=== PATIENT | female | born 2000 | race Caucasian/White ===

== ENCOUNTER → 2019-11-07 15:49 | Outpatient (CLI) | payer OTHER, SELFPAY ==
[2019-11-07 11:28] VITALS: BMI 40.8
== END ==
PROVIDERS: Referring Provider Physician Assistant; Visit Provider Physician Assistant
DX: J02.9 Acute pharyngitis, unspecified (principal)
CPT/HCPCS: 87070; 87077; 87186

== ENCOUNTER 2023-01-07 08:58 | Emergency (ER) | payer OTHER, SELFPAY ==
[2023-01-07 08:59] VITALS: BP 155/109; PULSE 108; RESP 18; TEMP 36.4; O2SAT 98; BMI 43.8
--- NOTE | 2023-01-07 09:25 | RAD_ITS ---
STUDY: X-RAY CHEST REASON FOR EXAM: Female, 22 years old. Wheezing. TECHNIQUE: Frontal and lateral views of the chest. COMPARISON: None. FINDINGS: The lungs are clear and expanded. There is no demonstrated pleural abnormality. Normal size heart. Normal mediastinum and koby. Normal visualized pulmonary arteries. Normal visualized aortic arch and descending thoracic aorta. Normal visualized thoracic spine. Normal visualized ribs, clavicles, and shoulders. No abnormality of the visualized soft tissue structures of the upper abdomen. RAD/Chest PA and Lateral IMPRESSION: Normal x-ray examination of the chest. Electronically Signed: Ryan Pardo MD at 9:54 EDT ,
--- NOTE | 2023-01-07 09:28 | EDS_ITS ---
HPI History of Present Illness Chief Complaint: Shortness of Breath Informant: patient Narrative Narrative: Patient had some mild dyspnea this morning. 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 She noticed about 4:30 in the morning she felt a little short of breath. She states she actually woke up and heard wheezing or whistling although that is gone and she does feel better now. She has no history of asthma but it is strong in her family. She is vaping. She has not changed her vape compound in a year or so. No chest pain. No travel. No hemoptysis. She is on control. No family history of DVT or PE. No leg pain. She is not coughing. She has not had fevers. She does not have any known exposure to illnesses. Patient also does bring up that sometimes she gets tingling in her feet when she drives around and will sometimes get a sore back. Although these are not really issues now. She has never had leg swelling. PFSH PFSH Home Medications albuterol sulfate 90 mcg/actuation aerosol inhaler (Ventolin HFA) 2 puff inhalation Q4H PRN PRN Wheezing ##1 01/07/23 [Rx Last Taken Unknown] Allergy/AdvReac Type Severity Reaction Status Date / Time Sulfa (Sulfonamide Allergy Mild Hives Verified 01/07/23 09:01 Antibiotics) Social History Smoking Status: Current every day smoker tobacco type: e-cigarettes ROS ROS ED ROS Narrative A complete review of systems was performed and is negative except as documented in the history of present illness. Some specific details below. Constitutional: No recent fevers or chills. No malaise. EYE: No discharge, visual complaints, or pain. ENT: No difficulty swallowing. No swelling. No pain. No reflux symptoms. CV: No palpitations. No syncope or presyncope. Respiratory: See history of present illness. GI: No abdominal pain. No nausea vomiting diarrhea. No blood in stool. : No frequency dysuria or hematuria. Musculoskeletal: No recent trauma. No pains at this time but occasionally lower back pain when driving as in history of present illness. No swelling. Skin: No rash. Nondiaphoretic. Neuro: No weakness or numbness at this time. Endocrine: No polyuria or polydipsia. EXAM Physical Exam Narrative Exam Narrative: CONSTITUTIONAL: Patient is nontoxic in appearance. The patient looks comfortable. Work of breathing looks normal. She is typing or texting on her phone comfortably as I walk in the room. HEENT: No notable trauma. Mucous membranes moist. No sinus tenderness. No indication of pain with swallowing. EYES: No conjunctival injection. No proptosis. NECK:No JVD. No stridor. CARDIOVASCULAR: Regular rate. Regular rhythm. No notable murmur. No JVD. RESPIRATORY: No respiratory distress. Breathing is unlabored. No wheezes but she does have a slightly prolonged expiration. No rhonchi. No rales. No pain with a deep breath. No chest wall tenderness. No coughing. No cessation of inspiration with a deep breath. GASTROINTESTINAL: Not distended. Bowel sounds are normal. No tenderness. No guarding. No rebound. GENITOURINARY: No tenderness over the bladder. No CVA tenderness. MUSCULOSKELETAL: Atraumatic. No peripheral edema. No cord. No tenderness along the deep venous system. No asymmetry. No distended veins. NEUROLOGICAL: Patient is alert and appropriate. No focal deficit noted. Deep tendon reflexes both Achilles and patellar are equal and normal. SKIN: No noted rashes. No diaphoresis. PSYCHIATRIC: Patient is calm. Mood is appropriate. Const Vital Signs: 01/07/23 08:59 01/07/23 09:08 01/07/23 09:51 Temperature 97.5 F L Temperature Source Temporal Pulse Rate 108 H 85 Respiratory Rate 18 18 Respiratory Effort Normal Respiratory Depth Normal Respiratory Pattern Normal Normal Blood Pressure 155/109 H Blood Pressure Mean 124 Pulse Ox 98 Oxygen Delivery Method Room Air [facility] [place] Narrative Medical decision making narrative: Plan depend interpretation the patient's two-view x-ray of the chest shows no acute process. No pneumothorax. No infiltrate. Cardiac silhouette looks normal. Final reading is pending. Final reading is also normal x-ray examination of the chest. I checked the patient. She sounds better. She states she does feel better. We discussed that since she has a lot of allergies she may benefit from Claritin daily. She can get that [id number]. We also discussed at length cessation of vaping. I will give her albuterol inhaler for as needed use. I recommend follow-up with primary physician also. Radiography Diagnostic Testing: Clinical Impression(s) from Imaging Studies Chest X-Ray 01/07/23 09:25 IMPRESSION: Normal x-ray examination of the chest. Electronically Signed: Ryan Pardo MD at 9:54 EDT , Discharge Plan Triage Chief Complaint: Shortness of Breath ED Provider: Efrain Pedraza Dx/Rx/DC Orders Clinical Impression: Vapes nicotine containing substance, Bronchospasm Instructions: E Cigarettes and Vaping, ED Bronchospasm (Adult) Prescriptions: New albuterol sulfate [Ventolin HFA] 90 mcg/actuation HFA aerosol inhaler 2 puff inhalation Q4H PRN PRN (Reason: Wheezing) Qty: 1 0RF Primary Care Provider: Care Physician,No Primary Referrals: Malina Booker MD [Med Staff - Beauty Culturist Apprentice] - 5-7 Days Disposition Disposition: Home, Self Care
[2023-01-07] MEDS: Ipratropium/Albuterol Sulfate 3 ML AMPUL.NEB INHALATION (09:40)
[2023-01-07 09:51] VITALS: PULSE 85; RESP 18
== END 2023-01-07 10:33 | disposition home or self-care (01) ==
PROVIDERS: Emergency Provider Emergency Medicine; Visit Provider Emergency Medicine
DX: J98.01 Acute bronchospasm (principal); F17.290 Nicotine dependence, other tobacco product, uncomplicated
CPT/HCPCS: 71046; 94640; 99282

== ENCOUNTER 2023-12-03 08:30 | Outpatient (RCR) | payer OTHER, SELFPAY ==
--- NOTE | 2023-11-24 11:51 | HP.OTEVAL_ITS ---
Patient's Visit Information Visit Information Visit Information: MJ PINA is a 23 year old F, referred to Occupational Therapy by Dr. Pérez Carrasco MD, with a diagnosis of interdigital webbing. 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 Patient's surgery was Thursday the 08 of November. She arrives with charles wrapping on, sutures removed November 19. Patient is R hand dominant. 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 ROM MP: L hand 70-75 flexion, extension WNL PIP: L hand 85-90 flexion, extension WNL DIP: L hand 45-50 flexion, extension WNL ROM Comments: L hand able to oppose all digits able to gently adduct and abduct digits Strength Corn Popper: R hand 54# Lateral Pinch: R hand 4# Tripod Pinch: R hand 2# Tip-to-Tip Pinch: R hand 2# Edema Other: no significant edema noted in L hand Sensation Sensation Comments: no tingling or numbness in left hand, sensation intact Quick DASH-Disab of Arm,Shoulder& Hand Quick DASH Score: 36.3625 Rehabilitation General Assessment: Patient arrived s/p snipping of webbing in left hand between middle and ring finger. Webbing only extended to just proximal to PIP joint. Patient with sutures removed November 19 and presents as still open wound with new tissue starting to form. Patient denied pain, no signs or symptoms of infection present. Patient with limited use of the left hand as a result and would benefit from skilled OT services to educate and provide intervention for wound management, healing, ROM exercises, scar desensitization, and strengthening. Rehabilitation Potential: Good Anticipated Interventions Anticipated Interventions: A/AAROM/PROM, Strengthening, Scar Care, Desensitization and Education re Self-Bandaging Techniques Visit Plan Frequency: 2x /Week Duration: 6 Weeks General Plan: Rec 2x/week to educate and provide intervention for wound cleaning and mgmt, ROM exercises, and then strengthening. Plan to discuss anti-bacterial ointment at next appt and further educate on wound healing needing a moist and clean environment, wanting to prevent it drying out entirely. TEXT: Thank you for the opportunity to evaluate your patient. For Medicare and Medicare HMO plans, please review the plan of care and approve it. It will need to be FAXED BACK to us at [phone] for Medicare purposes. Please let me know if there are questions or concerns regarding this plan of care. Physician Signature: Date:
--- NOTE | 2023-11-26 12:03 | HP.OTEVAL_ITS ---
Patient's Visit Information Visit Information Visit Information: MJ PINA is a 23 year old F, referred to Occupational Therapy by Dr. Pérez Carrasco MD, with a diagnosis of interdigital webbing. 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 Patient's surgery was Thursday the 08 of November. She arrives with charles wrapping on, sutures removed November 19. Patient is R hand dominant. 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 ADLs Comments: Patient is indep with ADL's, she is driving, she is able to complete 2 handed tasks in a modified way lives with parents and they can assist as needed Patient is self-employed, donna local city driver M-Thu ROM MP: L hand 70-75 flexion, extension WNL PIP: L hand 85-90 flexion, extension WNL DIP: L hand 45-50 flexion, extension WNL ROM Comments: L hand able to oppose all digits able to gently adduct and abduct digits Strength Pattern Marking Supervisor: R hand 54# Lateral Pinch: R hand 4# Tripod Pinch: R hand 2# Tip-to-Tip Pinch: R hand 2# Edema Other: no significant edema noted in L hand Sensation Sensation Comments: no tingling or numbness in left hand, sensation intact Quick DASH-Disab of Arm,Shoulder& Hand Quick DASH Score: 36.3625 Goals Goal:: Patient will demonstrate within functional ROM of affected hand by d/c. Goal:: Patient will have improved fxnal use of L hand for ADL's with quickdash score of 32 or less by d/c. Rehabilitation General Assessment: Patient arrived s/p snipping of webbing in left hand between middle and ring finger. Webbing only extended to just proximal to PIP joint. Patient with sutures removed November 19 and presents as still open wound with new tissue starting to form. Patient denied pain, no signs or symptoms of infection present. Patient with limited use of the left hand as a result and would benefit from skilled OT services to educate and provide intervention for wound management, healing, ROM exercises, scar desensitization, and strengthening. Rehabilitation Potential: Good Anticipated Interventions Anticipated Interventions: A/AAROM/PROM, Strengthening, Scar Care, Desensitization and Education re Self-Bandaging Techniques Visit Plan Frequency: 2x /Week Duration: 6 Weeks General Plan: Rec 2x/week to educate and provide intervention for wound cleaning and mgmt, ROM exercises, and then strengthening. Plan to discuss anti-bacterial ointment at next appt and further educate on wound healing needing a moist and clean environment, wanting to prevent it drying out entirely. TEXT: Thank you for the opportunity to evaluate your patient. For Medicare and Medicare HMO plans, please review the plan of care and approve it. It will need to be FAXED BACK to us at [phone] for Medicare purposes. Please let me know if there are questions or concerns regarding this plan of care. Physician Signature: Date:
--- NOTE | 2023-12-03 08:45 | HP.OTDCSUM ---
Discharge Summary D/C Summary: It has been my pleasure to treat MJ PINA under orders from Dr. Pérez Carrasco MD, for the diagnosis of interdigital webbing for a total of 3 visit(s). Please see the following information for a summary of their discharge status. Goals Patient Goals: Regain Strength, Improve Fine Motor Skills, Use Hand/Wrist/Arm Normally Again and Increase ROM Goal:: Patient will demonstrate within functional ROM of affected hand by d/c. (MET 12/03/23) Goal:: Patient will have improved fxnal use of L hand for ADL's with quickdash score of 32 or less by d/c (MET QUICK DASH SCORE 11 on 12/03/23) Plan Plan: discharge from OT, adequate progress and wound closure. D/C Information d/c sentence: If there are questions or concerns regarding this patient's occupational therapy, please fell free to call me at [phone]. Thank you for the referral of this patient. Sincerely, Candace Urena
== END 2023-12-03 09:00 | disposition home or self-care (01) ==
LOC: OT 08:30
PROVIDERS: Referring Provider Orthopaedic Surgery; Visit Provider Orthopaedic Surgery
DX: Q71.31 Congenital absence of right hand and finger (principal); Q70 Syndactyly
CPT/HCPCS: 97110; 97165; 97530

== ENCOUNTER 2024-06-05 01:23 | Emergency (ER) | payer OTHER, SELFPAY ==
[2024-06-05 01:26] VITALS: TEMP 34.4; BMI 50.5
[2024-06-05 02:01] VITALS: BP 158/113; BP 230/87
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
--- NOTE | 2024-06-05 02:14 | ED.RN ---
Approximately 3L normal saline given with 2 units of blood.
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
[2024-06-05 06:30] VITALS: RESP 0
== END 2024-06-05 06:32 ==
PROVIDERS: Emergency Provider Surgery; Visit Provider Surgery
DX: I46.9 Cardiac arrest, cause unspecified (principal); I49.01 Ventricular fibrillation; J94.2 Hemothorax; V48.9XXA Unspecified car occupant injured in noncollision transport accident in traffic accident, initial encounter
CPT/HCPCS: 31500; 32551; 51702; 86850; 86900; 86901; 92950; 99284; P9016; A4216